=== PATIENT | female | born 1985 | race Caucasian/White ===

== ENCOUNTER 2018-11-22 22:00 | Inpatient (IN) | payer MEDICAID ==
[2018-11-23] MEDS ORDERED: METHYLERGONOVINE 0.2 MG INJ IM (01:30)
[2018-11-23] MEDS ORDERED: IBUPROFEN 600 MG TAB PO (01:30)
[2018-11-23] MEDS ORDERED: BUTORPHANOL 2 MG INJ IV ×2 (01:30)
[2018-11-23] MEDS ORDERED: OXYTOCIN 30 UNITS/LR 500 ML IV (01:30)
[2018-11-23] MEDS ORDERED: CARBOPROST 250 MCG INJ IM (01:30)
[2018-11-23] MEDS ORDERED: MISOPROSTOL 200 MCG TAB PR (01:30)
[2018-11-23] MEDS: LACTATED RINGER'S 1,000 ML IV ×3 (01:41→16:11)
[2018-11-23] MEDS: MISOPROSTOL 50 MCG CAPSULE PO ×4 (01:41→16:11)
[2018-11-23] MEDS: AMPICILLIN 2 GM/NS (PMX) 100 ML IV (01:41)
[2018-11-23 03:47] LABS: ADD MAN DIFF? NO
[2018-11-23 04:03] LABS: BASOPHILS % 0.3 % (0.0-2.0); EOSINOPHILS # 0.1 10^3/ul (0.0-0.5); EOSINOPHILS % 0.8 % (0.0-7.0); HEMATOCRIT 35.7 % (37.0-47.0); HEMOGLOBIN 11.9 g/dl (12.0-16.0); LYMPHOCYTES # 2.1 10^3/ul (0.8-2.9); LYMPHOCYTES % 19.1 % (15.0-51.0); MEAN CORPUSCULAR HEMOGLOBIN 29.4 pg (29.0-33.0); MEAN CORPUSCULAR HGB CONC 33.3 g/dl (32.0-37.0); MEAN CORPUSCULAR VOLUME 88.1 fl (82.0-101.0); MEAN PLATELET VOLUME 10.9 fl (7.4-10.4); MONOCYTE # 0.6 10^3/ul (0.3-0.9); MONOCYTES % 5.4 % (0.0-11.0); NEUTROPHIL # 8.2 10^3/ul (1.6-7.5); NEUTROPHILS % 73.9 % (39.0-77.0); PLATELET COUNT 249 10^3/UL (140-415); RED BLOOD COUNT 4.05 10^6/ul (4.20-5.40); RED CELL DISTRIBUTION WIDTH 14.8 % (11.5-14.5)
[2018-11-23 04:03] LABS: WHITE BLOOD COUNT 11.1 10^3/ul (4.8-10.8)
[2018-11-23 04:12] LABS: PROTIME 13.3 Sec (11.9-14.9)
[2018-11-23 04:13] LABS: PARTIAL THROMBOPLASTIN TIME 29.2 Sec (23.0-35.0)
[2018-11-23 04:46] LABS: HEPATITIS B SURFACE ANTIGEN NEGATIVE (NEGATIVE)
[2018-11-23] MEDS: AMPICILLIN 1 GM/NS (PMX) 50 ML IV ×4 (07:54→20:21)
[2018-11-23] MEDS: LABETALOL 100 MG TAB PO ×2 (08:42→21:07)
[2018-11-23 16:15] LABS: RAPID PLASMA REAGIN NONREACTIVE (NR)
[2018-11-23 18:40] LABS: ALANINE AMINOTRANSFERASE 19 IU/L (13-69); ALBUMIN 3.3 g/dl (3.3-4.9); ALBUMIN/GLOBULIN RATIO 0.89; ALKALINE PHOSPHATASE 168 IU/L (42-121); ANION GAP 8 (5-13); ASPARTATE AMINO TRANSFERASE 18 IU/L (15-46); BILIRUBIN,INDIRECT 0.6 mg/dl (0-1.1); BILIRUBIN,TOTAL 0.6 mg/dl (0.2-1.3); BLOOD UREA NITROGEN 7 mg/dl (7-20); CALCIUM 9.6 mg/dl (8.4-10.2); CARBON DIOXIDE 20 mmol/L (21-31); CHLORIDE 108 mmol/L (97-110); CREATININE 0.59 mg/dl (0.44-1.00); Estimated GFR > 60 mL/min (>60); GLUCOSE 70 mg/dl (70-220); SODIUM 136 mmol/L (135-144); URIC ACID 5.9 mg/dl (3.1-7.9)
[2018-11-24 00:18] LABS: ADD UMIC YES; UR ASCORBIC ACID NEGATIVE (NEGATIVE); UR BILIRUBIN (Dip) NEGATIVE (NEGATIVE); UR BLOOD (Dip) 1+ mg/dL (NEGATIVE); UR CLARITY CLEAR (CLEAR); UR COLOR YELLOW (YELLOW); UR GLUCOSE (Dip) NEGATIVE (NEGATIVE); UR KETONES (Dip) 2+ mg/dL (NEGATIVE); UR LEUKOCYTE ESTERASE (Dip) NEGATIVE Leu/ul (NEGATIVE); UR NITRITE (Dip) NEGATIVE (NEGATIVE); UR RBC 2 /HPF (0-5); UR TOTAL PROTEIN (Dip) NEGATIVE (NEGATIVE); UR UROBILINOGEN (Dip) NEGATIVE (NEGATIVE); UR WBC 1 /HPF (0-5)
[2018-11-24] MEDS: AMPICILLIN 1 GM/NS (PMX) 50 ML IV ×5 (00:52→16:04)
[2018-11-24] MEDS: LACTATED RINGER'S 1,000 ML IV ×5 (00:53→18:46)
[2018-11-24] MEDS: OXYTOCIN 30 UNITS/LR 500 ML IV ×3 (04:13→22:56)
[2018-11-24] MEDS: LABETALOL 100 MG TAB PO ×2 (08:57→21:00)
[2018-11-24] MEDS ORDERED: FENTAnyl 2MCG/ML-ROPIV 0.2% 100 ML (12:59)
[2018-11-24] MEDS ORDERED: NALOXONE (0.4 MG/ML) INJ IV (13:00)
[2018-11-24] MEDS: FENTAnyl 2MCG/ML-ROPIV 0.2% 100 ML BAG EPI (14:38)
[2018-11-24] MEDS: LIDOCAINE 1% (MPF) 30 ML INJ INJ (23:29)
[2018-11-24] MEDS ORDERED: CARBOPROST 250 MCG INJ IM (23:30)
[2018-11-24] MEDS ORDERED: ONDANSETRON 4 MG INJ IV (23:30)
[2018-11-24] MEDS ORDERED: NACL 0.9% 3 ML SYG IV (23:30)
[2018-11-24] MEDS ORDERED: MISOPROSTOL 200 MCG TAB PR (23:30)
[2018-11-24] MEDS ORDERED: OXYTOCIN 30 UNITS/LR 500 ML IV (23:30)
[2018-11-24] MEDS ORDERED: METHYLERGONOVINE 0.2 MG INJ IM (23:30)
[2018-11-24] MEDS ORDERED: LANOLIN HPA 1 PKT TOP (23:30)
[2018-11-25] MEDS: IBUPROFEN 800 MG TAB PO ×5 (00:50→23:38)
[2018-11-25] MEDS: OXYTOCIN 30 UNITS/LR 500 ML IV (03:26)
[2018-11-25 05:00] LABS: ADD MAN DIFF? NO
[2018-11-25 05:11] LABS: WHITE BLOOD COUNT 16.1 10^3/ul (4.8-10.8)
[2018-11-25 05:11] LABS: BASOPHILS % 0.1 % (0.0-2.0); EOSINOPHILS % 0.1 % (0.0-7.0); HEMOGLOBIN 10.2 g/dl (12.0-16.0); LYMPHOCYTES # 1.9 10^3/ul (0.8-2.9); LYMPHOCYTES % 11.8 % (15.0-51.0); MEAN CORPUSCULAR HEMOGLOBIN 29.4 pg (29.0-33.0); MEAN CORPUSCULAR HGB CONC 32.9 g/dl (32.0-37.0); MEAN CORPUSCULAR VOLUME 89.3 fl (82.0-101.0); MONOCYTE # 0.7 10^3/ul (0.3-0.9); MONOCYTES % 4.6 % (0.0-11.0); NEUTROPHIL # 13.3 10^3/ul (1.6-7.5); NEUTROPHILS % 82.9 % (39.0-77.0); PLATELET COUNT 209 10^3/UL (140-415); RED BLOOD COUNT 3.47 10^6/ul (4.20-5.40); RED CELL DISTRIBUTION WIDTH 14.6 % (11.5-14.5)
[2018-11-25] MEDS: LABETALOL 100 MG TAB PO ×2 (09:00→21:00)
[2018-11-25] MEDS: MINERAL OIL LIGHT 10 ML VIAL TOP (09:16)
[2018-11-26] MEDS: IBUPROFEN 800 MG TAB PO ×2 (05:35→13:20)
[2018-11-26] MEDS: LABETALOL 100 MG TAB PO (09:00)
== END 2018-11-26 17:00 | disposition home or self-care (01) | DRG 806 ==
LOC: L-D 22:00 → MS1 11-25 01:18
PROVIDERS: Obstetrics & Gynecology
PROC: 10E0XZZ Delivery of Products of Conception, External Approach (ICD-10-PCS; principal; 2018-11-24)
PROC: 0KQM0ZZ Repair Perineum Muscle, Open Approach (ICD-10-PCS; 2018-11-24)
PROC: 3E033VJ Introduction of Other Hormone into Peripheral Vein, Percutaneous Approach (ICD-10-PCS; 2018-11-24)
DX: O10.92 Unspecified pre-existing hypertension complicating childbirth (principal); Z68.42 Body mass index [BMI] 45.0-49.9, adult; Z37.0 Single live birth; O99.213 Obesity complicating pregnancy, third trimester; Z3A.37 37 weeks gestation of pregnancy; O70.1 Second degree perineal laceration during delivery
CPT/HCPCS: 62322; 76815; 76818; 80053; 81001; 84560; 85025; 85384; 85610; 85730; 86592; 86850; 86900; 86901; 87340; 99464